=== PATIENT | male | born 1965 | race Two or more races ===

== ENCOUNTER 2018-04-21 11:52 | Emergency (ER) | payer MEDICAID ==
[~2018-04-21] VITALS: Ht 165.1 cm; Wt 65.8 kg
--- NOTE | 2018-04-21 12:13 | NUR ---
5cm laceration to R elbow s/p fall, PAIN LEVEL 8/10. PT IS AOX4, AMB, VSS, RR EVEN AND UNLABORED. SKIN WARM TO TOUCH, DRY. DENIES SOB, DIZZINESS, WEAKNESS, N/V. NO ACUTE DISTRESS NOTED. HUNGARIAN-SPEAKING. AT BEDSIDE, SPEAKS [place]. READY FOR EVAL.
[2018-04-21] MEDS ORDERED: ACETAMINOPHEN ES 500 MG TABLET ONE (12:17)
[2018-04-21] MEDS ORDERED: ACETAMINOPHEN 325 MG TABLET PO ONE (12:30)
--- NOTE | 2018-04-21 12:30 | NUR ---
[employer]LECT[employer]IC RE[employer]ERATOR SERVICER AT BEDSIDE FOR WOUND CARE
[2018-04-21] MEDS ORDERED: LIDOCAINE 1%-EPI 1:100,000 20 ML VIAL ONE (12:34)
--- NOTE | 2018-04-21 12:45 | NUR ---
TRISTA BAI AT BEDSIDE FOR STAPLE APPLICATION
--- NOTE | 2018-04-21 13:19 | NUR ---
Patient discharged to home in stable condition. Written and verbal after care instructions given. Patient verbalizes understanding of instruction.
[2018-04-21 13:26] VITALS: BP 146/84
== END 2018-04-21 13:27 | disposition home or self-care (01) ==
LOC: ER 11:57
DX: S51.011A Laceration without foreign body of right elbow, initial encounter (principal); I10 Essential (primary) hypertension; W18.39XA Other fall on same level, initial encounter; Y93.89 Activity, other specified; Y92.89 Other specified places as the place of occurrence of the external cause; Y99.8 Other external cause status
CPT/HCPCS: 12002; 73080; 99283; A4606; A6402 ×2; A6403; J3490; Z7610

== ENCOUNTER 2018-05-05 22:04 | Emergency (ER) | payer MEDICAID ==
[~2018-05-05] VITALS: Ht 170.2 cm; Wt 81.6 kg
[2018-05-05 22:31] VITALS: BP 136/80
[2018-05-05] MEDS ORDERED: BACITRACIN ZINC OINT PACKET 1 EA PACKET TP ONE (23:30)
== END 2018-05-06 00:03 | disposition home or self-care (01) ==
LOC: ER 22:05
DX: S51.811D Laceration without foreign body of right forearm, subsequent encounter (principal); I10 Essential (primary) hypertension; W18.39XD Other fall on same level, subsequent encounter
CPT/HCPCS: A6402